=== PATIENT | male | born 1965 | race Caucasian/White ===

== ENCOUNTER 2017-09-18 09:25 | Emergency (ER) | payer BC, OTHER ==
[~2017-09-18] VITALS: Ht 180.3 cm; Wt 100.2 kg
[2017-09-18] MEDS ORDERED: COLCHICINE 0.6 MG PO (09:45)
[2017-09-18] MEDS ORDERED: ALLOPURINOL 100 MG TABLET PO (09:45)
[2017-09-18] MEDS ORDERED: ASPIRIN 81 MG TAB.CHEW ONE (10:27)
[2017-09-18 11:45] LABS: BASOPHILS % (AUTO) 0.7 % (0.0-2.0); EOSINOPHILS # (AUTO) 0.1 K/uL (0.0-0.7); EOSINOPHILS % (AUTO) 2.5 % (0.0-7.0); HEMATOCRIT 48.8 % (40-50); HEMOGLOBIN 16.2 G/DL (14.0-18.0); LYMPHOCYTES # (AUTO) 1.3 K/UL (0.8-4.8); LYMPHOCYTES % (AUTO) 21.7 % (20.5-51.5); MEAN CORPUSCULAR HEMOGLOBIN 29.2 UUG (27.0-31.0); MEAN CORPUSCULAR HGB CONC 33 g/dL (32.0-37.0); MEAN CORPUSCULAR VOLUME 88.2 FL (82.0-92.0); MONOCYTES # (AUTO) 0.4 K/UL (0.1-1.30); MONOCYTES % (AUTO) 7.7 % (0.0-11.0); NEUTROPHILS % (AUTO) 67.4 % (38.5-71.5); PLATELET COUNT (AUTO) 185 K/UL (150-450); RED BLOOD CELL COUNT(AUTO) 5.53 MIL/UL (4.7-6.1); WHITE BLOOD COUNT (AUTO) 5.8 K/UL (4.0-11.2)
[2017-09-18 11:53] LABS: BILIRUBIN,TOTAL 0.7 mg/dL (0.2-1.0); CREATININE 1.4 mg/dL (0.6-1.3); POTASSIUM 4.2 mmol/L (3.5-5.1); TOTAL PROTEIN, SERUM 8.4 g/dL (6.4-8.2)
--- NOTE | 2017-09-18 12:15 | NUR ---
asa 82 mgx 4 given per md written order, at 1010, [facility] down at hallie time
--- NOTE | 2017-09-18 12:59 | NUR ---
Patient discharged to home in stable conditon. Written and verbal after care instructions given. Patient verbalizes understanding of instructions.pt walks in steady gait. pt denesi nay cp or sob at this time. pt insisting to go home becauses pt dog is hungry.
[2017-09-18 13:18] VITALS: BP 131/91
== END 2017-09-18 12:59 | disposition home or self-care (01) ==
LOC: ER 09:25
DX: R06.02 Shortness of breath (principal); M54.5 Low back pain
CPT/HCPCS: 36415; 70030-TC; 71010; 85025; 85730; 93005; A4663

== ENCOUNTER 2023-08-18 11:54 | Inpatient (IN) | payer BC, OTHER ==
[~2023-08-18] VITALS: Ht 167.6 cm; Wt 90.7 kg
[~2023-08-18 11:54] MED LIST: ALLOPURINOL 100 MG TABLET PO; COLCHICINE 0.6 MG PO
[2023-08-18] MEDS ORDERED: SWABABLE VALVE TRANSFER SET EA MC ONE (12:17)
[2023-08-18] MEDS ORDERED: IOHEXOL 350 100 ML INFUS..BTL ONE (12:17)
[2023-08-18] MEDS ORDERED: IV NORMAL SALINE 250 ML IV ONE (12:17)
[2023-08-18 12:21] LABS: BASOPHILS % (AUTO) 0.8 % (0.0-2.0); EOSINOPHILS # (AUTO) 0.2 K/uL (0.0-0.7); HEMATOCRIT 41.4 % (36.7-47.1); HEMOGLOBIN 14.4 g/dL (12.5-16.3); LYMPHOCYTES # (AUTO) 1.1 K/uL (0.8-4.8); LYMPHOCYTES % (AUTO) 18.4 % (20.5-51.5); MEAN CORPUSCULAR HEMOGLOBIN 31.4 uug (23.8-33.4); MEAN CORPUSCULAR HGB CONC 35 g/dL (32.5-36.3); MEAN CORPUSCULAR VOLUME 90.4 fL (73.0-96.2); MONOCYTES # (AUTO) 0.7 K/uL (0.1-1.30); MONOCYTES % (AUTO) 11.2 % (0.0-11.0); NEUTROPHILS % (AUTO) 66.6 % (38.5-71.5); PLATELET COUNT (AUTO) 193 K/uL (152-348); RED BLOOD CELL COUNT(AUTO) 4.58 MIL/uL (4.06-5.63); RED CELL DISTRIBUTION WIDTH 13.5 % (12.1-16.2); WHITE BLOOD COUNT (AUTO) 5.9 K/uL (3.6-10.2)
[2023-08-18 12:23] LABS: DIFFERENTIAL COMMENT 1
[2023-08-18 12:36] LABS: CALCIUM 9.3 mg/dL (8.5-10.1); CARBON DIOXIDE 23 mmol/L (21-32); CHLORIDE 100 mmol/L (98-107); CREATININE 1.4 mg/dL (0.6-1.3); GLUCOSE 104 mg/dL (74-106); POTASSIUM 3.8 mmol/L (3.5-5.1); SODIUM SERUM 135 mmol/L (136-145); UREA NITROGEN, BLOOD 23 mg/dL (7-18)
[2023-08-18 12:47] LABS: ALANINE AMINOTRANSFERASE 32 U/L (16-63); ALBUMIN 3.9 g/dL (3.4-5.0); ALKALINE PHOSPHATASE 44 U/L (50-136); ASPARTATE AMINOTRANSFERASE 14 U/L (15-37); BILIRUBIN,DIRECT 0.1 mg/dL (0.0-0.2); BILIRUBIN,TOTAL 0.3 mg/dL (0.2-1.0); TOTAL PROTEIN, SERUM 7.2 g/dL (6.4-8.2)
[2023-08-18] MEDS ORDERED: hydrALAZINE HCL 20 MG/1 ML VIAL ONE (13:08)
[2023-08-18] MEDS ORDERED: CLOPIDOGREL 75 MG TABLET PO ONE (13:15)
[2023-08-18] MEDS ORDERED: ASPIRIN 325 MG TABLET PO ONE (13:15)
[2023-08-18] MEDS ORDERED: hydrALAZINE HCL 20 MG/1 ML VIAL IV ONE (13:15)
[2023-08-18] MEDS ORDERED: ASPIRIN 325 MG TABLET ONE (13:22)
[2023-08-18] MEDS ORDERED: CLOPIDOGREL 75 MG TABLET ONE (13:22)
[2023-08-18 16:00] VITALS: TEMP 98
[2023-08-18] MEDS ORDERED: ACETAMINOPHEN 325 MG TABLET PO PRN (17:15)
[2023-08-18] MEDS ORDERED: ONDANSETRON 4 MG/2 ML VIAL IV PRN (17:15)
[2023-08-18] MEDS ORDERED: MAGNESIUM HYDROXIDE 30 ML LIQUID UDC PO PRN (17:15)
[2023-08-18] MEDS ORDERED: REMEDY ESSENTIAL ZINC PASTE 113 GM TP PRN (17:15)
[2023-08-18] MEDS ORDERED: BLOOD SUGAR DIAGNOSTIC 1 EACH STRIP VI SCH (18:00)
[2023-08-18 19:02] LABS: BASOPHILS % (AUTO) 0.7 % (0.0-2.0); EOSINOPHILS # (AUTO) 0.2 K/uL (0.0-0.7); EOSINOPHILS % (AUTO) 3.5 % (0.0-7.0); HEMATOCRIT 41.2 % (36.7-47.1); LYMPHOCYTES # (AUTO) 1.6 K/uL (0.8-4.8); MEAN CORPUSCULAR HEMOGLOBIN 30.9 uug (23.8-33.4); MEAN CORPUSCULAR HGB CONC 34 g/dL (32.5-36.3); MEAN CORPUSCULAR VOLUME 90.8 fL (73.0-96.2); MONOCYTES # (AUTO) 0.6 K/uL (0.1-1.30); MONOCYTES % (AUTO) 9.6 % (0.0-11.0); NEUTROPHILS # (AUTO) 4.2 K/uL (1.8-8.9); NEUTROPHILS % (AUTO) 62.2 % (38.5-71.5); PLATELET COUNT (AUTO) 192 K/uL (152-348); RED BLOOD CELL COUNT(AUTO) 4.54 MIL/uL (4.06-5.63); RED CELL DISTRIBUTION WIDTH 13.4 % (12.1-16.2); WHITE BLOOD COUNT (AUTO) 6.7 K/uL (3.6-10.2)
[2023-08-18] MEDS: IV NS 1000 ML 1,000 ML IV PRN (19:03)
[2023-08-18 19:12] LABS: DIFFERENTIAL COMMENT 1
[2023-08-18 19:17] LABS: ERYTHROCYTE SEDIMENTATION RATE 9 MM/HR (0-15)
[2023-08-18 19:20] LABS: CALCIUM 8.8 mg/dL (8.5-10.1); CREATININE 1.3 mg/dL (0.6-1.3); POTASSIUM 3.2 mmol/L (3.5-5.1)
[2023-08-18 19:33] LABS: ALBUMIN 3.9 g/dL (3.4-5.0); BILIRUBIN,TOTAL 0.7 mg/dL (0.2-1.0); TOTAL PROTEIN, SERUM 6.9 g/dL (6.4-8.2)
[2023-08-18 19:51] LABS: THYROID STIMULATING HORMONE 1.527 mIU/mL (0.358-3.740)
[2023-08-18 20:10] VITALS: BP 143/96; TEMP 97.9; O2SAT 96
[2023-08-18] MEDS: BLOOD SUGAR DIAGNOSTIC 1 EACH STRIP VI SCH (20:24)
[2023-08-18] MEDS: CLONIDINE HCL 0.1 MG TABLET PO PRN (23:57)
[2023-08-19 00:20] VITALS: BP 170/107; TEMP 97.9; O2SAT 97
[2023-08-19 04:29] VITALS: BP 146/96; TEMP 97.5; O2SAT 98
[2023-08-19] MEDS: BLOOD SUGAR DIAGNOSTIC 1 EACH STRIP VI SCH ×4 (06:34→21:38)
[2023-08-19 07:35] LABS: CALCIUM 8.6 mg/dL (8.5-10.1); CREATININE 1.1 mg/dL (0.6-1.3); MAGNESIUM 2.1 mg/dL (1.8-2.4); PHOSPHOROUS 2.5 mg/dL (2.5-4.9)
[2023-08-19 07:36] LABS: POTASSIUM 4.6 mmol/L (3.5-5.1)
[2023-08-19 08:00] VITALS: BP 122/77; TEMP 97.2; O2SAT 97
[2023-08-19 08:42] LABS: BASOPHILS % (AUTO) 0.7 % (0.0-2.0); EOSINOPHILS # (AUTO) 0.2 K/uL (0.0-0.7); EOSINOPHILS % (AUTO) 3.3 % (0.0-7.0); HEMATOCRIT 41.7 % (36.7-47.1); HEMOGLOBIN 14.6 g/dL (12.5-16.3); LYMPHOCYTES # (AUTO) 0.9 K/uL (0.8-4.8); MEAN CORPUSCULAR HEMOGLOBIN 31.7 uug (23.8-33.4); MEAN CORPUSCULAR HGB CONC 35 g/dL (32.5-36.3); MONOCYTES # (AUTO) 0.5 K/uL (0.1-1.30); MONOCYTES % (AUTO) 9.2 % (0.0-11.0); NEUTROPHILS # (AUTO) 4.2 K/uL (1.8-8.9); NEUTROPHILS % (AUTO) 71.8 % (38.5-71.5); PLATELET COUNT (AUTO) 196 K/uL (152-348); RED BLOOD CELL COUNT(AUTO) 4.59 MIL/uL (4.06-5.63); RED CELL DISTRIBUTION WIDTH 13.4 % (12.1-16.2); WHITE BLOOD COUNT (AUTO) 5.8 K/uL (3.6-10.2)
[2023-08-19] MEDS: IV NS 1000 ML 1,000 ML IV PRN ×3 (09:55→23:46)
[2023-08-19] MEDS: ASPIRIN 81 MG TAB.CHEW PO SCH (09:55)
[2023-08-19] MEDS: CLOPIDOGREL 75 MG TABLET PO SCH (09:55)
[2023-08-19 11:07] VITALS: BP 122/77; TEMP 97.2; O2SAT 97
[2023-08-19 12:00] VITALS: BP 105/65; TEMP 97.3; O2SAT 97
[2023-08-19 21:00] VITALS: BP 156/65; TEMP 98; O2SAT 97
[2023-08-19] MEDS ORDERED: ATORVASTATIN 40 MG TABLET PO SCH (21:00)
[2023-08-19] MEDS: CLONIDINE HCL 0.1 MG TABLET PO PRN (23:46)
[2023-08-20] VITALS: BP 187/121; TEMP 98; O2SAT 100
[2023-08-20 01:29] VITALS: BP 169/84; O2SAT 97
[2023-08-20 02:00] VITALS: BP 145/75; TEMP 98; O2SAT 97
[2023-08-20 04:00] VITALS: BP 112/73; TEMP 97.6; O2SAT 99
[2023-08-20] MEDS: CLONIDINE HCL 0.1 MG TABLET PO PRN (05:17)
[2023-08-20] MEDS: IV NS 1000 ML 1,000 ML IV PRN (06:18)
[2023-08-20] MEDS: BLOOD SUGAR DIAGNOSTIC 1 EACH STRIP VI SCH ×3 (06:23→16:30)
[2023-08-20 07:09] LABS: *BILIRUBIN,URIN NEGATIVE (NEGATIVE); *BLOOD, URINE NEGATIVE (NEGATIVE); *CLARITY,URINE CLEAR (CLEAR); *COLOR,URINE YELLOW (YELLOW); *KETONES,URINE NEGATIVE (NEGATIVE); *PROTEIN,URINE NEGATIVE (NEGATIVE); *UROBILINOGEN,URINE 0.2 E.U./dl (NORMAL); LEUKOCYTE ESTERASE ,URINE NEGATIVE (NEGATIVE); NITRITE, URINE NEGATIVE (NEGATIVE); UGLUCOSE TRACE (NEGATIVE)
[2023-08-20] MEDS ORDERED: LOSARTAN POTASSIUM 50 MG TABLET PO SCH (09:00)
[2023-08-20] MEDS ORDERED: NIFEdipine XL 30 MG TABSR PO SCH (09:00)
[2023-08-20] MEDS: CLOPIDOGREL 75 MG TABLET PO SCH (09:16)
[2023-08-20] MEDS: ASPIRIN 81 MG TAB.CHEW PO SCH (09:16)
[2023-08-20 11:30] VITALS: BP 103/73; TEMP 97.9; O2SAT 98
[2023-08-20 16:51] VITALS: BP 126/92; TEMP 97.3; O2SAT 98
[2023-08-20] MEDS ORDERED: LOSA50TA3 PO (17:29)
[2023-08-20] MEDS ORDERED: ATOR40TA PO (17:29)
[2023-08-20] MEDS ORDERED: ASPI81TA31 PO (17:29)
[2023-08-20] MEDS ORDERED: NIFE-35 PO (17:29)
== END 2023-08-20 19:45 | disposition home health service (06) | DRG 64 ==
LOC: ER 11:54 → TELE3 15:52
PROVIDERS: ADMIT Internal Medicine; ATTEND Internal Medicine
DX: I63.89 Other cerebral infarction (principal); N17.0 Acute kidney failure with tubular necrosis; G81.91 Hemiplegia, unspecified affecting right dominant side; R47.81 Slurred speech; R29.704 NIHSS score 4; E78.5 Hyperlipidemia, unspecified; E87.6 Hypokalemia; I10 Essential (primary) hypertension; I48.91 Unspecified atrial fibrillation; M10.9 Gout, unspecified; E66.9 Obesity, unspecified; Z68.32 Body mass index [BMI] 32.0-32.9, adult; N13.9 Obstructive and reflux uropathy, unspecified; G47.33 Obstructive sleep apnea (adult) (pediatric); I63.81 Other cerebral infarction due to occlusion or stenosis of small artery; F10.10 Alcohol abuse, uncomplicated
CPT/HCPCS: 36415; 70450; 70496; 70551; 71045; 83735; 84100; 84443; 84484; 85025; 85651; 85730; 93005; 93307; A4606; A4663; G0378; J0360; J7040; Q9967